=== PATIENT | female | born 1950 | race Caucasian/White ===

== ENCOUNTER 2017-09-09 17:07 | Inpatient (IN) | payer OTHER ==
[~2017-09-09] VITALS: Ht 157.5 cm; Wt 69.4 kg
--- NOTE | 2017-09-09 17:12 | NUR ---
PT BIBA TO BED 1
[2017-09-09 17:15] VITALS: BP 152/74
--- NOTE | 2017-09-09 17:15 | NUR ---
C/O ANTERIOR CHEST WALL PAIN NON RADIATING X3 DAYS PROVOKED BY HARD COUGH FATIGUE, HACKING CONGESTED COUGH X 2 WKS . DENIES N/V/D; SKIN IS PINK/WARM/DRY; AAOX4, HR EVEN AND REGULAR; PT DENIES ANY FEVER,SOB AT THIS TIME; PATIENT STATES PAIN OF 8/10 AT THIS TIME; VSS; PATIENT POSITIONED FOR COMFORT; HOB ELEVATED; BEDRAILS UP X2; BED DOWN. ER MD MADE AWARE OF PT STATUS.
[2017-09-09 17:40] LABS: BASOPHILS # (AUTO) 0.1 K/uL (0.00-0.22); BASOPHILS % (AUTO) 0.5 % (0.0-2.0); EOSINOPHILS # (AUTO) 0.4 K/uL (0-0.4); EOSINOPHILS % (AUTO) 3.2 % (0.0-4.0); HEMOGLOBIN 7.4 g/dL (12.0-16.0); LYMPHOCYTES % (AUTO) 15.3 % (20.5-51.1); MEAN CORPUSCULAR HEMOGLOBIN 29 pg (27-31); MEAN CORPUSCULAR HGB CONC 34 g/dL (33-37); MEAN CORPUSCULAR VOLUME 87 fL (80-94); MONOCYTES # (AUTO) 0.7 K/uL (0.8-1.0); MONOCYTES % (AUTO) 5.5 % (1.7-9.3); NEUTROPHILS # (AUTO) 9.9 K/uL (1.8-7.7); NEUTROPHILS % (AUTO) 75.5 % (42.2-75.2); PLATELET COUNT (AUTO) 271 K/uL (140-450); RED BLOOD CELL COUNT(AUTO) 2.53 MIL/uL (4.20-5.40); RED CELL DISTRIBUTION WIDTH 12.9 % (11.6-13.7); WHITE BLOOD COUNT (AUTO) 13.1 K/uL (4.8-10.8)
--- NOTE | 2017-09-09 17:50 | NUR ---
OFFER PT BEDPAN, PT DOES NOT WANT TO URINATE AT THIS TIME.
[2017-09-09 17:59] LABS: ALBUMIN 2.3 g/dL (3.4-5.0); ANION GAP 13.2 (8-16); POTASSIUM 4.2 mmol/L (3.5-5.1); PROTHROMBIN TIME 9.4 secs (10.8-13.4); TOTAL BILIRUBIN 0.2 mg/dL (0.0-1.0)
[2017-09-09 18:03] LABS: CREATININE 6.9 mg/dL (0.6-1.3)
--- NOTE | 2017-09-09 18:08 | NUR ---
NOTIFIED MD CRITICAL REPORT BUN 150 AND CREATININE 6.9
[2017-09-09] MEDS ORDERED: HYDROcodone/APAP 10/325 MG 1 TAB TAB PO STA (18:49)
[2017-09-09] MEDS ORDERED: IPRATROPIUM 0.02% 0.5 MG/2.5 ML NEBU INH ONE (18:50)
[2017-09-09] MEDS ORDERED: ALBUTEROL 0.083% 2.5 MG/3 ML NEBU INH ONE (18:50)
[2017-09-09] MEDS ORDERED: DEXAMETHASONE 10 MG/ML VIAL IVP ONE (18:50)
--- NOTE | 2017-09-09 19:08 | NUR ---
REPORT GIVEN TO RESISTANCE WELDER RN.
--- NOTE | 2017-09-09 19:20 | NUR ---
REPORT RECEIVED FROM TIARA VILLAR
[2017-09-09] MEDS ORDERED: NACL 0.45% 1,000 ML IV ONE (20:25)
--- NOTE | 2017-09-09 20:56 | NUR ---
PT REFUSED BAUER CATH FOR UA. ER MD DR DICKEY NOTIFICATION.
--- NOTE | 2017-09-09 21:05 | NUR ---
Patient will be admitted to care of DR AU. Admited to MED/SURG. Will go to [id number]. Belongings list completed. Report to JIAN YODER.
[2017-09-09 21:10] VITALS: BP 115/48
[2017-09-09 21:35] LABS: ANION GAP 17.4 (8-16); CARBON DIOXIDE 21.2 mmol/L (21-32); POTASSIUM 3.6 mmol/L (3.5-5.1)
[2017-09-09 21:42] LABS: CREATININE 6.9 mg/dL (0.6-1.3)
[2017-09-09] MEDS ORDERED: ACETAMINOPHEN 325 MG TAB PO SCH (22:00)
[2017-09-09] MEDS ORDERED: ONDANSETRON 4 MG/2 ML VIAL IM SCH (22:00)
--- NOTE | 2017-09-09 22:10 | NUR ---
ADMITTED A 67F FROM ER. CAME BY ALMA. MED SURG PT. CAME DUE TO PRODUCTIVE COUGH AND CHEST PAIN DUE TO COUGH AND FEVER. OF THIS TIME, PT IS AFEBRILE. WITH NO /CO OF ANY PAIN NOTED. AMBULATORY TO BATHROOM. WITH HL ON THE RT AC #20. SKIN INTACT ,JUST AN OLD SCAB ON THE LT KNEE. BOTH HAND FINGER SLIGHTLY SWOLLEN. PLAN OF CARE DISCUSSED AND VERBALIZED UNDERSTANDING. BED ON LOW POSITION, CALL LIGHT PLACED WITHIN EASY REACH.
[2017-09-09] MEDS ORDERED: ONDANSETRON 4 MG/2 ML VIAL IVP PRN (22:15)
[2017-09-09] MEDS ORDERED: ACETAMINOPHEN 325 MG TAB PO PRN (22:15)
[2017-09-09 22:23] LABS: APPEARANCE,URINE CLEAR (CLEAR); BILIRUBIN,URINE NEGATIVE (NEGATIVE); BLOOD, URINE 1+ (NEGATIVE); LEUKOCYTE ESTERASE ,URINE NEGATIVE (NEGATIVE); NITRITE, URINE NEGATIVE (NEGATIVE); PH,URINE 5.5 (5.0-9.0); UGLUCOSE 1+ (NEGATIVE)
[2017-09-09 22:24] LABS: COLOR,URINE STRAW (YELLOW)
[2017-09-09 22:41] LABS: RBC,URINE NONE SEEN /HPF (0-5); WBC,URINE 0-5 (RARE) /HPF (0-5)
--- NOTE | 2017-09-09 22:45 | NUR ---
TRIED CONTACTING FAMILY (DAUGHTER JAGJIT) FOR HOME MEDICATIONS BUT UNABLE . NO HOME PHONE NUMBER. THE CELL PHONE WITH PT. WILL ENDORSE TO AM NURSE.
--- NOTE | 2017-09-09 22:59 | NUR ---
PAGED Anushka SETH BEAMER HELPER FOR . CALLED BACK . GAVE INFORMATION ABOUT THE PT CONDITION. WITH ORDERS.
--- NOTE | 2017-09-09 23:25 | NUR ---
INSERTED BAUER CATHETER PER MD ORDER. TOLERATE PROCEDURE WELL.
[2017-09-10 00:10] VITALS: BP 150/56
--- NOTE | 2017-09-10 01:00 | NUR ---
PT ASLEEP. NO S/S OF DISTRESS NOR DISCOMFORT NOTED.
--- NOTE | 2017-09-10 02:30 | NUR ---
MADE ROUNDS. ASLEEP. NO S/S OF ANY DISCOMFORT NOR PAIN NOTED. WILL CONTINUE TO MONITOR.
[2017-09-10 03:50] VITALS: BP 123/55
--- NOTE | 2017-09-10 04:30 | NUR ---
SLEEPING. NO S/S OF ANY DISTRESS NOR PAIN NOTED.
--- NOTE | 2017-09-10 06:06 | NUR ---
BLOOD SUGAR WAS CHECKED THIS AM FOR PT IS DIABETIC. RESULT 406. PAGED DR. TEJEDA , STATEMENT DISTRIBUTION CLERK FOR DR. AU. CALLED BACK,. MADE HER AWARE OF THE BS. BS AC AND HS WITH SLIDING SCALE ORDER . TO GIVE HUMALOG 12 UNITS SUB Q ONCE TO COVER HER 406 BLOOD SUGAR THIS AM.
[2017-09-10] MEDS ORDERED: DEXTROSE 50% 50 ML SYR IVP PRN (06:20)
[2017-09-10] MEDS: BLOOD GLUCOSE MONITORING 1 DEV DEV FS SCH ×4 (06:38→21:33)
[2017-09-10 06:52] LABS: HEMATOCRIT 23.1 % (36-48); HEMOGLOBIN 7.8 g/dL (12.0-16.0); MEAN CORPUSCULAR HEMOGLOBIN 30 pg (27-31); MEAN CORPUSCULAR HGB CONC 34 g/dL (33-37); MEAN CORPUSCULAR VOLUME 88 fL (80-94); PLATELET COUNT (AUTO) 268 K/uL (140-450); RED BLOOD CELL COUNT(AUTO) 2.64 MIL/uL (4.20-5.40)
--- NOTE | 2017-09-10 06:58 | NUR ---
CALLED RT TO EVALUATE PT. THERE WAS ORDER FOR RT REQUEST FOR BREATHING TREATMENT. WILL SEE PT .
[2017-09-10] MEDS ORDERED: INSULIN LISPRO 100 UNITS/ML VIAL SUBQ SCH (07:00)
--- NOTE | 2017-09-10 07:05 | NUR ---
PAGED DR. AU WAS PAGED FOR BREATHING TREATMENTS. CALLED BACK WITH ORDER. RT MADE AWARE OF THE ORDER.
--- NOTE | 2017-09-10 07:30 | NUR ---
ENDORSED PT IN STABLE CONDITION TO AM NURSE.
--- NOTE | 2017-09-10 07:30 | NUR ---
PT REPORT RECEIVED FROM GRANITE COUNTERTOP INSTALLER RN. PT IS AAOX4. PT HAS PRODUCTIVE COUGH AND SPASM. BAUER IN PLACE DRAINING CLEAR YELLOW URINE. IV NOTED TO RIGHT AC 20G SALINE LOCK, AND RIGHT FA 22G INFUSING WELL AND ASYMPTOMATIC. SKIN INTACT, AN OLD SCAB NOTED ON THE L KNEE. PLAN OF CARE DISCUSSED AND PT VERBALIZED UNDERSTANDING. BED ON LOW POSITION, CALL LIGHT PLACED WITHIN REACH. WILL CONTINUE TO MONITOR.
[2017-09-10 07:53] LABS: BASOPHILS % (MANUAL) 0 % (0-2); EOSINOPHILS % (MANUAL) 0 % (0-4); LYMPHOCYTES % (MANUAL) 7 % (20-46); MONOCYTES % (MANUAL) 5 % (5-12)
[2017-09-10 08:00] VITALS: BP 145/62
--- NOTE | 2017-09-10 08:00 | NUR ---
VITALS TAKEN, BOARD UPDATED, INITIAL ASSESSMENT DONE.
[2017-09-10 08:19] LABS: ALBUMIN 2.4 g/dL (3.4-5.0); ANION GAP 20.2 (8-16); MAGNESIUM 2.2 mg/dL (1.8-2.4); PHOSPHORUS 6.8 mg/dL (2.5-4.9); POTASSIUM 5.2 mmol/L (3.5-5.1); TOTAL BILIRUBIN 0.2 mg/dL (0.0-1.0)
[2017-09-10 08:22] LABS: CREATININE 7.2 mg/dL (0.6-1.3)
--- NOTE | 2017-09-10 08:25 | NUR ---
RT PLACED PT ON 2L O2 VIA NC. NO SOB NOTED. INTERMITTENT COUGH WITH CREAMY SPUTUM.
--- NOTE | 2017-09-10 08:31 | NUR ---
PT REFUSES HHN WANTS TO EAT
--- NOTE | 2017-09-10 08:35 | NUR ---
DR AU HAS SEEN THE PT. PT HAVING SPASM IN TH LEGS, HELPED PT STRETCH LEGS, DR AU IS AWARE.
[2017-09-10] MEDS: ALBUTEROL SULFATE/IPRATROPIU 3 ML SOL IH PRN ×3 (08:43→18:15)
[2017-09-10] MEDS ORDERED: methylPREDNISolone SS 40 MG/ML VIAL IVP SCH (09:00)
[2017-09-10] MEDS ORDERED: methylPREDNISolone SS 40 MG in WATER STERILE 1 ML IV SCH (09:00)
[2017-09-10] MEDS: DOCUSATE 100 MG/10 ML UDC GT SCH (09:15)
[2017-09-10] MEDS: FERROUS SULFATE 325 MG TABEC PO SCH ×3 (09:18→17:52)
--- NOTE | 2017-09-10 10:08 | NUR ---
PT IS WATCHING TV. SCD APPLIED. NO S/S OF SOB.
[2017-09-10] MEDS ORDERED: CALC667C3 PO (10:50)
[2017-09-10] MEDS ORDERED: HYDR-3293 (11:35)
[2017-09-10] MEDS ORDERED: GABA-638 PO (11:35)
[2017-09-10] MEDS ORDERED: PANT40EC28 PO (11:35)
[2017-09-10] MEDS ORDERED: LISI-420 PO (11:35)
[2017-09-10] MEDS ORDERED: FERR-193 PO (11:35)
[2017-09-10] MEDS ORDERED: METO50TE PO (11:35)
[2017-09-10] MEDS ORDERED: AMLO5TAB4 PO (11:35)
[2017-09-10] MEDS ORDERED: ALLO100T21 PO (11:35)
[2017-09-10] MEDS ORDERED: INSU100S22 (11:35)
[2017-09-10] MEDS ORDERED: REN800 PO (11:35)
[2017-09-10] MEDS ORDERED: INSU-1165 (11:35)
[2017-09-10] MEDS ORDERED: CALC0.5C PO (11:35)
[2017-09-10] MEDS: INSULIN LISPRO SLIDING SCALE 100 UNITS/ML VIAL SUBQ PRN ×3 (11:57→21:51)
--- NOTE | 2017-09-10 12:10 | NUR ---
PT IS EATING LUNCH INDEPENDENTLY, NO S/S OF ACUTE DISTRESS. INTERMITTENT COUGH.
[2017-09-10] MEDS: guaiFENesin/CODEINE 100/10MG 5 ML UDC PO PRN (13:06)
[2017-09-10 16:00] VITALS: BP 145/59
--- NOTE | 2017-09-10 16:10 | NUR ---
PT HAS SIGN CONSENT FOR HEMODIALYSIS CATH PLACEMENT, HEMODIALYSIS AND BLOOD TRANSFUSION. DR HERNÁNDEZ HAS INSERTED NILA CATH FOR HEMODIALYSIS ON THE RIGHT IJ. CENTRAL LINE DRESSING APPLIED.
[2017-09-10] MEDS ORDERED: LORazepam 2 MG/ML VIAL ONE (16:22)
--- NOTE | 2017-09-10 16:30 | NUR ---
X RAY HAS BEEN TAKEN TO CONFIRM CATH PLACEMENT
--- NOTE | 2017-09-10 17:00 | NUR ---
1L URINE REMOVED FROM BAUER. URINE IS YELLOW, SLIGHTLY CLOUDY.
--- NOTE | 2017-09-10 18:15 | NUR ---
PT UNABLE TO SIT STILL , AGITATED, RESP LABORED AUDIBLY WHEEZING AND WET BREATH SOUNDS, FREQ COUGHS WITH COPIOUS AMOUNT OF CLEAR SPUTUM, RT PAGED FOR PRN NEB TREATMENT, PT AWAITING DIALYSIS IN 1HR.
--- NOTE | 2017-09-10 18:30 | NUR ---
PT IS GETTING BREATHING TX. PT HAD BMX1. PT WAS CLEANED AND BED LINENS CHANGED.
--- NOTE | 2017-09-10 18:45 | NUR ---
PT CONTINUES TO BE RESTLESS, ATTEMPTS TO GET OUT OF BED, DOES NOT FOLLOW COMMAND, PT APPEARS TOO DISORIENTED AND CONFUSED FOR AMBULATION TO BATHROOM, PT PLACED ON BED GODDARD, C/O KNEE PAIN, TYLENOL GIVEN, DR HOUSE GRAPHIC ART DESIGNER FOR DR ANGELY BELLO.
--- NOTE | 2017-09-10 19:15 | NUR ---
DR HOUSE CALLED BACK, PT CONDITION REPORTED, TELEPHONE ORDER RECEIVED FOR ONE TIME ATIVAN PRIOR TO DIALYSIS. WILL REPORT TO PRIMARY NURSE.
[2017-09-10] MEDS ORDERED: LORazepam 2 MG/ML VIAL IVP ONE ×3 (19:25→21:50)
--- NOTE | 2017-09-10 19:30 | NUR ---
ENDORSED PT TO CLINICAL RESEARCH PHYSICIAN RN. PT IN STABLE CONDITION.
--- NOTE | 2017-09-10 19:31 | NUR ---
RECEIVED PT FROM DAY SHIFT NURSE AXEL-RN. AOX4, YUNIOR PT. ON 2L/NC - 99% SAO2, NO S/S OF RESPIRATORY DISTRESS OR DISCOMFORT NOTED. RIGHT FA #22G HEPLOCK. RIGHT AC #20G HEPLOCK. WITH NEW RIGHT JUGULAR NILA CATHETER FOR DIALYSIS SCHEDULED TONIGHT. BAUER CATHETER TO GRAVITY, CLEAR YELLOW URINE OUTPUT. BILATERAL LOWER EXTREMITY SCD MACHINE ON. BED IN LOWEST POSITION. CALL LIGHT WITHIN REACH. WILL CONTINUE TO MONITOR.
--- NOTE | 2017-09-10 19:50 | NUR ---
HD NURSE CAME HD STARTED.
--- NOTE | 2017-09-10 21:05 | NUR ---
FIRST UNIT OF PRBC TRANSFUSED BY HD NURSE WITH NO REACTION NOTED.
[2017-09-10] MEDS: INSULIN LANTUS 100 UNITS/ML 10 ML VIAL SUBQ SCH (21:37)
--- NOTE | 2017-09-10 21:53 | NUR ---
PT AGITATED. PT STILL ON HEMODIALYSIS. TRIED TO PULL OUT HD CATHETER. ATIVAN 1MG IV PUSH WAS GIVEN PER ORDER.
--- NOTE | 2017-09-10 22:20 | NUR ---
SECOND UNIT OF PRBC COMPLETED BY HD NURSE WITH NO REACTION NOTED.
--- NOTE | 2017-09-10 22:54 | NUR ---
HD DONE . NO OUTPUT PER HD NURSE, JUST CLEANED PER MD ORDER. LATEST BP AFTER THE PROCEDURE 170/58. PT IS ASLEEP AT THIS TIME. WILL CONTINUE TO MONITOR.
[2017-09-10 23:50] VITALS: BP 176/90
--- NOTE | 2017-09-10 23:50 | NUR ---
PT CLEANED UP IN BED. REPOSITIONED FOR COMFORT THEN VITAL SIGNS TAKEN. BP 176/90, HR-102. WILL CALL MD TO MAKE AWARE.
--- NOTE | 2017-09-10 23:58 | NUR ---
GOT HOLD OF DR. HOUSE, HIGH SCHOOL COMPUTER SCIENCE TEACHER FOR DR. AU. MADE AWARE OF THE BP 176/90,HR-1-2. WITH ORDERS MADE.
[2017-09-11] MEDS ORDERED: cloNIDine 0.1 MG TAB PO PRN (00:10)
[2017-09-11] MEDS ORDERED: hydrALAZINE 20 MG/ML VIAL IVP PRN (00:10)
[2017-09-11] MEDS: guaiFENesin/CODEINE 100/10MG 5 ML UDC PO PRN (00:41)
--- NOTE | 2017-09-11 00:42 | NUR ---
RECHECKED BLOOD PRESSURE 186/82, HR 99. CLONIDINE O.2MG PO GIVEN ORDERED.
[2017-09-11 02:12] VITALS: BP 142/64
--- NOTE | 2017-09-11 02:12 | NUR ---
LATEST BLOOD PRESSURE 142/64 AFTER ADMINISTERING CLONIDINE.
--- NOTE | 2017-09-11 05:00 | NUR ---
PT TRYING TO GET OUT OF BED. PT GETTING CONFUSED. PT NEEDING REDIRECTING. BE ALARM ON FOR SAFETY. WILL CONTINUE TO MONITOR.
[2017-09-11] MEDS: ALBUTEROL SULFATE/IPRATROPIU 3 ML SOL IH PRN ×3 (06:06→18:57)
[2017-09-11] MEDS: BLOOD GLUCOSE MONITORING 1 DEV DEV FS SCH ×4 (06:11→21:00)
[2017-09-11] MEDS: INSULIN LISPRO SLIDING SCALE 100 UNITS/ML VIAL SUBQ PRN ×4 (06:12→21:12)
--- NOTE | 2017-09-11 06:12 | NUR ---
BLOOD SUGAR WAS CHECKED THIS AM . RESULT 197. INSULIN COVERAGE GIVEN SUBQ.
[2017-09-11 06:49] LABS: HEMATOCRIT 28.3 % (36-48); HEMOGLOBIN 9.6 g/dL (12.0-16.0); MEAN CORPUSCULAR HEMOGLOBIN 30 pg (27-31); MEAN CORPUSCULAR HGB CONC 34 g/dL (33-37); MEAN CORPUSCULAR VOLUME 87 fL (80-94); PLATELET COUNT (AUTO) 207 K/uL (140-450); RED BLOOD CELL COUNT(AUTO) 3.25 MIL/uL (4.20-5.40); RED CELL DISTRIBUTION WIDTH 12.9 % (11.6-13.7); WHITE BLOOD COUNT (AUTO) 21.7 K/uL (4.8-10.8)
--- NOTE | 2017-09-11 06:50 | NUR ---
HD NURSE HERE STARTED DIALYSIS .
[2017-09-11 07:12] LABS: ANION GAP 12.7 (8-16); CARBON DIOXIDE 27.7 mmol/L (21-32); POTASSIUM 3.4 mmol/L (3.5-5.1)
[2017-09-11 07:16] LABS: CREATININE 4.3 mg/dL (0.6-1.3)
--- NOTE | 2017-09-11 07:20 | NUR ---
ENDORSED STABLE PT TO AM NURSE IRA VILLAR.
--- NOTE | 2017-09-11 07:21 | NUR ---
RECEIVED REPORT FROM STREET LIGHT MECHANIC RN. PATIENT IS AAOX2, ON NASAL CANNULA, NO SIGNS AND SYMPTOMS OF ACUTE DISTRESS NOTED AT THIS TIME. PATIENT HAS IV TO RIGHT FOREARM 22G, SALINE LOCK. SITE IS CLEAN, DRY, PATENT AND INTACT. HAS RIGHT IJ NILA CATH FOR DIALYSIS. DIALYSIS NURSE IS CURRENTLY HERE SETTING UP. PATIENT HAS BAUER CATHETER IN PLACE. ALSO HAS BEDSIDE COMMODE AT THE BEDSIDE. DISCUSSED PLAN OF CARE WITH PATIENT AND REINFORCEMENT WAS NEEDED. BED IS IN LOWEST POSITION, SIDE RAILS UP X3, CALL LIGHT WITHIN REACH, FALL RISK PROTOCOL IN PLACE. WILL CONTINUE TO MONITOR.
[2017-09-11 07:53] LABS: ANION GAP 12.7 (8-16); CARBON DIOXIDE 27.7 mmol/L (21-32); POTASSIUM 3.4 mmol/L (3.5-5.1)
[2017-09-11 07:54] LABS: CREATININE 4.3 mg/dL (0.6-1.3); LYMPHOCYTES % (MANUAL) 3 % (20-46); MONOCYTES % (MANUAL) 2 % (5-12)
[2017-09-11 07:55] LABS: ALBUMIN 2.3 g/dL (3.4-5.0); TOTAL BILIRUBIN 0.3 mg/dL (0.0-1.0)
[2017-09-11 08:00] VITALS: BP 129/52
[2017-09-11] MEDS: DOCUSATE 100 MG/10 ML UDC GT SCH (08:52)
[2017-09-11] MEDS: FERROUS SULFATE 325 MG TABEC PO SCH ×3 (08:52→17:04)
--- NOTE | 2017-09-11 10:09 | NUR ---
PATIENT HAS BEEN SCREENED AND CATEGORIZED MODERATE NUTRITION RISK. PATIENT WILL BE SEEN WITHIN 3-5 DAYS OF ADMISSION. 09/11/17-09/13/[address]
--- NOTE | 2017-09-11 11:07 | NUR ---
RECEIVED ORDER TO SET UP PATIENT FOR OP HD AT [facility]. I CALLED THE DIALYSIS CENTER AND SPOKE WITH DAVE. FAXED INFORMATION TO HER AT [phone] PHONE [phone]. NO HEP PANEL YET. PATIENT STILL HAVE NILA CATH.
--- NOTE | 2017-09-11 12:03 | NUR ---
FAXED INITIAL REVIEW TO [facility] [phone] PHONE TRACIE [phone]
--- NOTE | 2017-09-11 13:59 | NUR ---
REMOVED PATIENTS BAUER CATHETER PER DR MCWILLIAMS. PATIENT TOLERATED WELL. REMINDED HER THAT THE BEDSIDE COMMODE IS NEXT TO HER IF SHE NEEDS TO URINATE. CALL LIGHT WITHIN REACH. WILL CONTINUE TO MONITOR.
[2017-09-11 16:00] VITALS: BP 150/62
--- NOTE | 2017-09-11 19:20 | NUR ---
ENDORSED PATIENT TO INNER LAYER SCRUBBER TENDER RN FOR CONTINUITY OF CARE. PATIENT IN STABLE CONDITION.
--- NOTE | 2017-09-11 19:30 | NUR ---
ASSUMED CARE OF PATIENT, AWAKE, ALERT AND ORIENTED. NO COMPLAINS. NO DISTRESS. CALL LIGHT WITHIN REACH.
--- NOTE | 2017-09-11 20:00 | NUR ---
HS SNACK GIVEN. CALL LIGHT WITHIN REACH. CARE BOARD UPDATED. PLAN OF CARE DISCUSSED, VERBALIZED UNDERSTANDING WELL.
--- NOTE | 2017-09-11 21:00 | NUR ---
DR. HERNÁNDEZ NOTED WBC-21.4, WANTS TO CALL PRIMARY MD TO INQUIRE FOR POSSIBILE ANTIBIOTIC, DR. LINDSAY MADE AWARE AND BLOOD CULTURE X2 SENT.
[2017-09-11] MEDS: INSULIN LANTUS 100 UNITS/ML 10 ML VIAL SUBQ SCH (21:12)
--- NOTE | 2017-09-11 23:10 | NUR ---
STOOL SPECIMEN FOR OB. PERICARE DONE. COMPLETE BED CHANGE DONE.
[2017-09-12 00:05] VITALS: BP 133/66
--- NOTE | 2017-09-12 04:40 | NUR ---
ASLEEP, EASILY AROUSABLE. NO COMPLAINS. CALL LIGHT WITHIN REACH.
[2017-09-12] MEDS: BLOOD GLUCOSE MONITORING 1 DEV DEV FS SCH ×4 (05:58→20:51)
[2017-09-12 06:23] LABS: HEPATITIS A ANTIBODY IGM Negative (Negative); HEPATITIS B CORE AB TOTAL Negative (Negative); HEPATITIS B SURFACE ANTIBODY Non Reactive (.); HEPATITIS B SURFACE ANTIGEN Negative (Negative)
[2017-09-12 06:42] LABS: BASOPHILS # (AUTO) 0.1 K/uL (0.00-0.22); BASOPHILS % (AUTO) 0.4 % (0.0-2.0); EOSINOPHILS # (AUTO) 0.1 K/uL (0-0.4); EOSINOPHILS % (AUTO) 0.4 % (0.0-4.0); HEMATOCRIT 30.5 % (36-48); HEMOGLOBIN 10.4 g/dL (12.0-16.0); LYMPHOCYTES # (AUTO) 2.1 K/uL (2.5-16.5); LYMPHOCYTES % (AUTO) 12.8 % (20.5-51.1); MEAN CORPUSCULAR HEMOGLOBIN 30 pg (27-31); MEAN CORPUSCULAR HGB CONC 34 g/dL (33-37); MEAN CORPUSCULAR VOLUME 88 fL (80-94); MONOCYTES # (AUTO) 1.3 K/uL (0.8-1.0); NEUTROPHILS # (AUTO) 12.9 K/uL (1.8-7.7); NEUTROPHILS % (AUTO) 78.4 % (42.2-75.2); PLATELET COUNT (AUTO) 223 K/uL (140-450); RED BLOOD CELL COUNT(AUTO) 3.45 MIL/uL (4.20-5.40); RED CELL DISTRIBUTION WIDTH 13.1 % (11.6-13.7); WHITE BLOOD COUNT (AUTO) 16.5 K/uL (4.8-10.8)
[2017-09-12] MEDS: ALBUTEROL SULFATE/IPRATROPIU 3 ML SOL IH PRN ×2 (06:51→13:07)
--- NOTE | 2017-09-12 07:09 | NUR ---
ENDORSED CARE AT BEDSIDE WITH ASHOK RN, PATIENT IN STABLE CONDITION
[2017-09-12 07:13] LABS: ANION GAP 13.2 (8-16); CARBON DIOXIDE 29.2 mmol/L (21-32); CREATININE 3.8 mg/dL (0.6-1.3); POTASSIUM 3.4 mmol/L (3.5-5.1)
[2017-09-12 07:17] LABS: ALBUMIN 2.2 g/dL (3.4-5.0); ANION GAP 12.2 (8-16); CARBON DIOXIDE 29.2 mmol/L (21-32); CREATININE 3.8 mg/dL (0.6-1.3); POTASSIUM 3.4 mmol/L (3.5-5.1); TOTAL BILIRUBIN 0.3 mg/dL (0.0-1.0)
--- NOTE | 2017-09-12 07:30 | NUR ---
PATIENT SLEEPING, VITAL SIGNS ARE STABLE, ON ROOM AIR.
--- NOTE | 2017-09-12 07:55 | NUR ---
RECEIVED A CALL FROM DAVE ON 09/11/17 FROM [facility]. SHE SAID THE CHAIR TIME FOR THIS PATIENT WILL BE MONDAY, MONDAY, MONDAY AT 8:30A.M. AT [facility] [address] [facility] [address] PHONE [phone]
[2017-09-12 08:16] VITALS: BP 133/55
[2017-09-12] MEDS: FERROUS SULFATE 325 MG TABEC PO SCH ×3 (08:39→17:13)
[2017-09-12] MEDS: DOCUSATE 100 MG/10 ML UDC GT SCH (08:43)
--- NOTE | 2017-09-12 10:00 | NUR ---
Patient in distress d/t her hair being caught on tape from her IJ quintion cath. Patient does not want us to pull the hair off the tape, she refused and told us to cut it. CATALYST MANUFACTURING OPERATOR helped remove some hair but she urged us to cut some of the hair off. Once we cut it she was relieved. Will continue to monitor the patient.
--- NOTE | 2017-09-12 12:00 | NUR ---
I call Patient's Erin Huynh at , to discuss discharge for patient today with MD. Recommendation to go to a [facility] Facility. I inform Mrs. Huynh that case uri has attempted to have patient go to [facility] however; insurance did not approved due to patient needing a higher level of care. Mrs. Huynh stated that she did not want Patient to go to [facility] and was thinking to take him home. I explained to Patient's Mrs. Huynh that in order for case liner to search for Placement it needed to be discussed with her and been on agreement for the process of finding a SNF. She verbalized understanding, and stated that she will like to see those places first. I explained to Mrs. Huynh that the process usually is handle by case fitter and it consist on finding a bed and facility that contracts with patient's insurance and when found it is sometimes very difficult to coordinate the visit first and it is possible to loose the bed if a delay was to happen. Mrs. Huynh agreed and verbalized understanding, she also stated that it was fine for case uri to search for a SNF. I thank her for information and I ended the call.
[2017-09-12] MEDS: INSULIN LISPRO SLIDING SCALE 100 UNITS/ML VIAL SUBQ PRN ×3 (12:08→20:57)
--- NOTE | 2017-09-12 12:08 | NUR ---
Patient resting, easily arousable. Will continue to monitor
--- NOTE | 2017-09-12 14:50 | NUR ---
Patient stable, sitting on chair watching TV. Will continue to monitor.
[2017-09-12 16:00] VITALS: BP 168/60
--- NOTE | 2017-09-12 16:06 | NUR ---
FAXED CONCURRENT REVIEW TO [facility] [phone] PHONE TRACIE [phone]
--- NOTE | 2017-09-12 17:00 | NUR ---
I met with Patient and Erin Huynh at bedside to discuss patient's discharge to SNF( [facility]) [facility]. Mrs. Huynh was stated feeling concern that Patient will be discharge to SNF when she has not visited the place and location, stated " I just don't Know if it a good place for my " These program writer explained to Mrs. Huynh that facility has served community and many patient's with similar needs that her has and explained that hospice case manager Dayanna has made every effort to find an facility closer to her home, that can provide services Patient is in need for and coordinate all transportation to placement, I Also explained that Patient needs to discharge today to a different level of care and that if he is not to discharge and she declined services; she will possibly be financially responsible for the hospitalization due to her declining of services. Mrs Huynh expressed understanding and stated that she just wants to see facility before Patient is send there for treatment I explained to her that she can and she can also Speak to [facility] facility Staff. Mrs. Huynh agreed and Tran from [facility] call Mrs. Huynh and arrange for her to go see facility at about 5:20. Mrs. Huynh Ended call and stated to these program writer that she was in her way and will comeback to [facility] before transport is here ready to move Patient. She thank me for my assistance as we walk out the room stating that she will be back.
--- NOTE | 2017-09-12 17:19 | NUR ---
Patient sitting on bed, watching TV. No complaints of pain. Stabilized IJ kristofer catheter with tape, it becomes loose when she sleeps on it. Will continue to monitor
--- NOTE | 2017-09-12 18:49 | NUR ---
USED PUBLICITY CONSULTANT PHONE TO OBTAIN CONSENT FOR PERMACATH PLACEMENT. PATIENT AGREED TO PROCEDURE AND SIGNED CONSENT.
--- NOTE | 2017-09-12 19:07 | NUR ---
Gave report to restaurant shift leader nurse for continuity of care. Patient is in stable condition.
--- NOTE | 2017-09-12 19:08 | NUR ---
RECD. RESTING IN BED, AWAKE, A/OX3. RESPIRATION EVEN AND UNLABORED. 02 SATURATING AT 96% ON ROOM AIR. NILA CATH AT THE RIGHT IJ WITH DRESSING, FOR CHANGING IN AM, IV SALINE LOCK AT THE RIGHT FOREARM G22, PATENT AND INTACT. USES BSC. SAFETY MEASURES ENFORCED. ON BILATERAL LEG SEQUENTIALS. PLAN OF CARE FOR THE SHIFT DISCUSSED. VERBALIZED UNDERSTANDING. DENIES PAIN 0/10.
[2017-09-12] MEDS: INSULIN LANTUS 100 UNITS/ML 10 ML VIAL SUBQ SCH (20:54)
[2017-09-12] MEDS: guaiFENesin/CODEINE 100/10MG 5 ML UDC PO PRN (21:13)
--- NOTE | 2017-09-12 21:13 | NUR ---
ATE 100% SNACK FOR THE NIGHT, WITH PRODUCTIVE COUGHING, MEDICATED WITH ROBITUSSIN ORDERED.
--- NOTE | 2017-09-12 22:00 | NUR ---
Patient's Plan of Care was discussed and reviewed with SILVERWARE SUPERVISOR: ISAAK PARIKH
--- NOTE | 2017-09-12 22:13 | NUR ---
NO COUGHING NOTED, SLEEPING COMFORTABLY IN BED.
[2017-09-13] VITALS: BP 156/64
--- NOTE | 2017-09-13 | NUR ---
SLEEPING COMFORTABLY IN BED.
[2017-09-13] MEDS: guaiFENesin/CODEINE 100/10MG 5 ML UDC PO PRN (03:39)
--- NOTE | 2017-09-13 03:39 | NUR ---
WITH COUGHING, MEDICATED WITH ROBITUSSIN ORDERED.
--- NOTE | 2017-09-13 04:39 | NUR ---
NO COUGHING NOTED, SLEEPING COMFORTABLY IN BED.
[2017-09-13] MEDS: BLOOD GLUCOSE MONITORING 1 DEV DEV FS SCH ×4 (06:12→21:14)
--- NOTE | 2017-09-13 06:40 | NUR ---
SLEEPING COMFORTABLY IN BED, NPO FOR PLACEMENT OF DIALYSIS PERMA CATH TODAY. CONDITION REMAIN STABLE. WILL ENDORSE TO AM NURSE FOR CONTINUITY OF CARE.
--- NOTE | 2017-09-13 07:10 | NUR ---
RECEIVED REPORT FROM INSTALLER HELPER NURSE. PT IS RESTING IN BED, AAOX4, AMBULATORY, PT HAS IV ON HER RIGHT FA, PATENT, INTACT, FLUSHING WELL, SL, PT HAS RIGHT IJ NILA CATH, NO S/S OF RESPIRATORY DISTRESS OR DISCOMFORT NOTED, LEFT KNEE SCAB, DISCUSSED PLAN OF CARE WITH PT, PT VERBALIZED UNDERSTANDING, SAFETY/FALL PRECAUTIONS ARE IN PLACE, CALL LIGHT IS WITHIN REACH, WILL CONTINUE TO MONITOR.
[2017-09-13 07:22] LABS: ANION GAP 13.2 (8-16); CARBON DIOXIDE 27.3 mmol/L (21-32); POTASSIUM 3.5 mmol/L (3.5-5.1)
[2017-09-13 07:35] LABS: CREATININE 4.5 mg/dL (0.6-1.3)
[2017-09-13 08:00] VITALS: BP 127/65
[2017-09-13] MEDS: FERROUS SULFATE 325 MG TABEC PO SCH ×3 (08:00→16:43)
[2017-09-13 08:06] LABS: HEMATOCRIT 29.9 % (36-48); HEMOGLOBIN 9.5 g/dL (12.0-16.0); MEAN CORPUSCULAR HEMOGLOBIN 28 pg (27-31); MEAN CORPUSCULAR HGB CONC 32 g/dL (33-37); MEAN CORPUSCULAR VOLUME 88 fL (80-94); PLATELET COUNT (AUTO) 206 K/uL (140-450); RED BLOOD CELL COUNT(AUTO) 3.41 MIL/uL (4.20-5.40); RED CELL DISTRIBUTION WIDTH 13.1 % (11.6-13.7); WHITE BLOOD COUNT (AUTO) 15.2 K/uL (4.8-10.8)
[2017-09-13 08:52] LABS: EOSINOPHILS % (MANUAL) 1 % (0-4); LYMPHOCYTES % (MANUAL) 12 % (20-46); MONOCYTES % (MANUAL) 5 % (5-12)
[2017-09-13] MEDS: DOCUSATE 100 MG/10 ML UDC GT SCH (09:00)
--- NOTE | 2017-09-13 09:55 | NUR ---
SPOKE TO DR. HERNÁNDEZ, I ASKED HIM IF THE PATIENT WOULD BE HAVING THE PERMA CATH DONE TODAY. PER DR. HERNÁNDEZ, PROCEDURE WILL MOST LIKELY BE DONE TOMORROW NIGHT, 09/14/17, SINCE HER WBC IS STILL ELEVATED. PATIENT SHOULD BE ON ANTIBIOTICS. OKAY TO GO AHEAD AND DO DIALYSIS TODAY.
[2017-09-13] MEDS: EPOETIN ALFA 10,000 UNITS/ML VIAL SUBQ SCH (10:50)
--- NOTE | 2017-09-13 10:50 | NUR ---
DUE MEDICATION GIVEN, PT TOLERATED WELL. WILL CONTINUE TO MONITOR.
--- NOTE | 2017-09-13 11:05 | NUR ---
SPOKE TO DR. AU, I LET HIM KNOW I HAD SPOKEN TO DR. HERNÁNDEZ AND HE WOULD LIKE FOR THE PATIENT TO BE RECEIVING ANTIBIOTIC TREATMENT FOR HER ELEVATED WBC BEFORE HE DOES THE TUNNEL CATH. PER DR. AU HE WILL PUT IN AN ANTIBIOTIC ORDER.
[2017-09-13] MEDS: INSULIN LISPRO SLIDING SCALE 100 UNITS/ML VIAL SUBQ PRN ×2 (12:24→21:19)
[2017-09-13 12:28] LABS: HEPATITIS B SURFACE ANTIGEN Negative (Negative)
--- NOTE | 2017-09-13 13:00 | NUR ---
PT WAS SITTING ON CHAIR AT BEDSIDE, PATIENT'S BED LINENS WERE CHANGED, ALL NEEDS MET AT THIS TIME, CALL LIGHT WITHIN REACH.
--- NOTE | 2017-09-13 13:13 | NUR ---
CM NOTE CONCURRENT REVIEW FAXED TO [facility] / FAX# [phone], ATTN: TRACIE #[phone]
--- NOTE | 2017-09-13 14:47 | NUR ---
09/13/2017 RD INITIAL ASSESSMENT COMPLETED PLEASE REFER TO NUTRITION ASSESSMENT UNDER CARE ACTIVITY FOR ESTIMATED NUTRITIONAL NEEDS. RD TO DISCUSS RENAL DIETARY RESTRICTIONS WITH PT (COMPLETED) NURSING AND DIETARY STAFF TO CONTINUE TO ENCOURAGE INCREASED INTAKE RD TO FOLLOW-UP IN 2-3 DAYS PATIENT IS HIGH RISK. KVNG HALE, RD
--- NOTE | 2017-09-13 15:15 | NUR ---
PT RESTING IN BED TALKING ON THE PHONE, CALL LIGHT WITHIN REACH.
[2017-09-13 16:00] VITALS: BP 177/73
--- NOTE | 2017-09-13 19:05 | NUR ---
ENDORSED PT TO VIDEO POKER FLOORMAN NURSE FOR CONTINUITY OF CARE. PT STABLE AT THIS TIME, DIALYSIS NURSE IS AT BEDSIDE.
--- NOTE | 2017-09-13 19:06 | NUR ---
RECD. RESTING IN BED, AWAKE, A/OX3. RESPIRATION EVEN AND UNLABORED. ON 02 AT 2 LITERS VIA N/C, 02 SAT -97%. DIALYSIS ON GOING VIA RIGHT JUGULAR NILA CATH. COMPLAINT OF PAIN IN THE UPPER BACK 09/16, BUT REFUSED PAIN MEDICATION. ASSISTED TO LAY ON HER SIDES AND PLACED TWO PILLOWS ON BACK FOR COMFORT. PLAN OF CARE FOR THE SHIFT DISCUSSED. JUST NODS HEAD. SEEMS IMPATIENT WITH DIALYSIS, WANTS IT TO END SOON. VERBAL ENCOURAGEMENT GIVEN. ON BILATERAL LEG SEQUENTIALS. DIALYSIS NURSE AT THE BEDSIDE.
--- NOTE | 2017-09-13 21:05 | NUR ---
DIALYSIS FINISHED, ABLE TO TAKE OUT 1.9 LITERS OF FLUID PER DIALYSIS NURSE.
[2017-09-13] MEDS: INSULIN LANTUS 100 UNITS/ML 10 ML VIAL SUBQ SCH (21:18)
[2017-09-13] MEDS: PIPER/TAZO 2.25GM/D5W PREMIX 50 ML IV SCH ×2 (21:30→21:34)
--- NOTE | 2017-09-13 23:30 | NUR ---
LEFT THIGHS AND LEFT LOWER EXTREMITY WITH ITCHINESS, APPLIED LOTION. REFUSED MED FOR ITCHINESS WHEN OFFERED.
[2017-09-14] VITALS: BP 128/67
--- NOTE | 2017-09-14 | NUR ---
SLEEPINGT COMFORTABLY IN BED.
--- NOTE | 2017-09-14 01:00 | NUR ---
SHOUTED, WHEN ASKED WHY STATED SHE HAS BACK PAIN BUT REFUSED PAIN MEDICATION WHEN OFFERED. MADE COMFORTABLE WITH PILLOWS.
--- NOTE | 2017-09-14 02:30 | NUR ---
WITH PRODUCTIVE COUGHING BUT REFUSED COUGH MEDICINE WHEN OFFERED.
--- NOTE | 2017-09-14 04:00 | NUR ---
WARM BLANKETS GIVEN, MADE COMFORTABLE IN BED.
[2017-09-14] MEDS: BLOOD GLUCOSE MONITORING 1 DEV DEV FS SCH ×4 (06:04→21:00)
[2017-09-14 06:58] LABS: BASOPHILS # (AUTO) 0.1 K/uL (0.00-0.22); BASOPHILS % (AUTO) 0.5 % (0.0-2.0); EOSINOPHILS # (AUTO) 0.3 K/uL (0-0.4); EOSINOPHILS % (AUTO) 1.7 % (0.0-4.0); HEMOGLOBIN 10.4 g/dL (12.0-16.0); LYMPHOCYTES # (AUTO) 1.5 K/uL (2.5-16.5); LYMPHOCYTES % (AUTO) 10.1 % (20.5-51.1); MEAN CORPUSCULAR HEMOGLOBIN 30 pg (27-31); MEAN CORPUSCULAR HGB CONC 35 g/dL (33-37); MEAN CORPUSCULAR VOLUME 87 fL (80-94); MONOCYTES # (AUTO) 0.8 K/uL (0.8-1.0); MONOCYTES % (AUTO) 5.3 % (1.7-9.3); NEUTROPHILS # (AUTO) 12.5 K/uL (1.8-7.7); NEUTROPHILS % (AUTO) 82.4 % (42.2-75.2); PLATELET COUNT (AUTO) 221 K/uL (140-450); RED BLOOD CELL COUNT(AUTO) 3.46 MIL/uL (4.20-5.40); RED CELL DISTRIBUTION WIDTH 12.8 % (11.6-13.7); WHITE BLOOD COUNT (AUTO) 15.2 K/uL (4.8-10.8)
--- NOTE | 2017-09-14 07:03 | NUR ---
CONDITION REMAIN STABLE. NPO FOR PERMA CATH PLACEMENT TODAY. WILL ENDORSE TO AM NURSE FOR CONTINUITY OF CARE.
--- NOTE | 2017-09-14 07:15 | NUR ---
RECEIVED REPORT FROM ARCHITECT MARINE AT BEDSIDE FOR CONTINUITY OF CARE.
[2017-09-14 07:29] LABS: ALBUMIN 2.1 g/dL (3.4-5.0); ANION GAP 12.4 (8-16); CARBON DIOXIDE 28.2 mmol/L (21-32); CREATININE 3.8 mg/dL (0.6-1.3); POTASSIUM 3.6 mmol/L (3.5-5.1); TOTAL BILIRUBIN 0.3 mg/dL (0.0-1.0)
--- NOTE | 2017-09-14 07:50 | NUR ---
PATIENT ALERT ABLE TO VERBALIZE NEEDS. NO ACUTE DISTRESS NOTED. RESP EVEN AND UNLABORED. NO COUGH OR CONGESTION NOTED. LUNG SOUNDS CLEAR IN ALL MICHAEL. BOWEL SOUNDS ACTIVE X 4 QUADS. PATIENT WITH RIJ NILA CATH WITH 2 LUMENS. . RFA 22G SL. PATENT AND INTACT. PATIENT NPO THIS AM FOR PERMACATH PLACEMENT. PATIENT BELARUSIAN SPEAKING . CONT ON O2 @2L/MIN VIA NC.ASSISTED PATIENT TO RESTROOM. CALL LIGHT WITHIN REACH. WILL CONT TO MONITOR PT.
[2017-09-14 08:00] VITALS: BP 99/49
[2017-09-14] MEDS: FERROUS SULFATE 325 MG TABEC PO SCH ×3 (08:42→16:19)
[2017-09-14] MEDS: PIPER/TAZO 2.25GM/D5W PREMIX 50 ML IV SCH ×2 (08:42→21:00)
--- NOTE | 2017-09-14 08:42 | NUR ---
ADMINISTERED MORNING MEDICATIONS SCHEDULED. PATIENT TOLERATED WELL. PATIENT NPO PRIOR TO PORTACATH PROCEDURE. RESIDENT ALERT AND ABLE TO MAKE NEEDS KNOWN. NO ACUTE DISTRESS. NO C/O PAIN. CALL LIGHT WITHIN REACH. WILL CONT TO MONITOR.
[2017-09-14] MEDS: DOCUSATE 100 MG/10 ML UDC GT SCH (08:43)
--- NOTE | 2017-09-14 10:30 | NUR ---
PATIENT RESTING IN BED COMFORTABLY. PATIENT ON THE PHONE TALKING. NO ACUTE DISTRESS NOTED. NO C/O PAIN AT THIS TIME. WAITING FOR PORTACATH PROCEDURE.CALL LIGHT WITHIN REACH. WILL CONT TO MONITOR PT.
--- NOTE | 2017-09-14 12:43 | NUR ---
ADMINISTERED SCHEDULED MEDICATIONS ORDERED. WITH SIP OF WATER. PATIENT TOLERATED WELL. PATIENT CONT NPO FOR PROCEDURE. PATIENT ALERT AND ABLE TO MAKE NEEDS KNOWN. NO ACUTE DISTRESS. CALL LIGHT WITHIN REACH. WILL CONT TO MONITOR PT.
[2017-09-14] MEDS: NACL 0.9% 1,000 ML IV SCH (13:00)
--- NOTE | 2017-09-14 14:30 | NUR ---
PATIENT RESTING IN BED. IV TO RFA WITH NS @40CC/HR. PATIENT TOLERATED WELL. NO ACUTE DISTRESS. RESP EVEN AND UNLABORED. DENIES PAIN. CALL LIGHT WITHIN REACH. WILL CONT TO MONITOR PT.
--- NOTE | 2017-09-14 15:27 | NUR ---
CM NOTE CONCURRENT REVIEW FAXED TO [facility] / FAX# [phone], ATTN: TRACIE #[phone]
[2017-09-14 16:00] VITALS: BP 107/56
--- NOTE | 2017-09-14 17:00 | NUR ---
SPOKE WITH PATIENT AND DAUGHTER JAGJIT REGARDING PROCEDURE PENDING AND IMPORTANCE OF PROCEDURE. NOTIFIED THEM PROCEDURE WOULD BE DONE THIS EVENING. PATIENT VERBALIZED UNDERSTANDING AND AGREEMENT.
--- NOTE | 2017-09-14 19:20 | NUR ---
ENDORSED PLAN OF CARE AT BEDSIDE TO MINIBUS DRIVER NURSE FOR CONTINUITY OF CARE.
--- NOTE | 2017-09-14 19:21 | NUR ---
RECEIVED PT FROM DAY SHIFT NURSE KRYS Carl RN. PT RESTING IN BED AWAITING FOR OR PROCEDURE. AOX4. ON 2L NC. IV RIGHT FA 22G, 40ML/HR NS, RIGHT IJ NILA CATH 2 LUMENS FOR DIALYSIS. PT HAS BEEN NPO FOR PROCEDURE. NO S/S OF RESPIRATORY DISTRESS OR DISCOMFORT NOTED AT THIS TIME. CALL LIGHT WITHIN REACH. WILL CONTINUE TO MONITOR.
--- NOTE | 2017-09-14 19:55 | NUR ---
PT WAS TAKEN TO OR IN STABLE CONDITION.
[2017-09-14] MEDS ORDERED: MIDAZOLAM 2 MG/2 ML VIAL ONE (20:30)
[2017-09-14] MEDS ORDERED: fentaNYL 0.05 MG/ML VIAL ONE (20:30)
[2017-09-14] MEDS ORDERED: BUPIVACAINE-MPF 0.25% 30 ML VIAL INJ ONE (20:37)
[2017-09-14] MEDS ORDERED: LIDOCAINE MPF 1% - **ER/OR** 0 ML ONE (20:38)
[2017-09-14] MEDS ORDERED: LIDOCAINE/EPI 1% 1:100000 20 ML VIAL INJ ONE (20:40)
[2017-09-14] MEDS: INSULIN LANTUS 100 UNITS/ML 10 ML VIAL SUBQ SCH (21:00)
[2017-09-14] MEDS ORDERED: PROPOFOL 200 MG/20 ML VIAL IV ONE (22:05)
[2017-09-14] MEDS ORDERED: MORPHINE SULFATE 4 MG/ML SYR ONE (22:06)
[2017-09-14] MEDS ORDERED: MORPHINE SULFATE 4 MG/ML SYR IVP PRN ×3 (22:10)
--- NOTE | 2017-09-14 22:50 | NUR ---
PT RETURNED TO THE UNIT VIA GURNEY FROM OR PROCEDURE. PT RESTING IN BED. ZOSYN WAS GIVEN BEFORE PROCEDURE. FANTYL, VERSED AND MORPHINE WAS GIVEN IN OR FOR PROCEDURE MODERATE SEDATION. CXR DONE. IJ QUNTON CATH BEEN D/C. RIGHT SUBCLAVIAN WAS INSERTED FOR DIALYSIS BY DR. HERNÁNDEZ.
--- NOTE | 2017-09-14 22:51 | NUR ---
HEPARIN INJECTION WAS NOT GIVEN. PT RETURNING FROM SURGERY. SEQUENTIAL PROPHYLAXIS BILATERAL LOWER EXTREMITIES IN PLACE.
[2017-09-14] MEDS ORDERED: MIDAZOLAM 2 MG/2 ML VIAL IV SCH (23:00)
[2017-09-15] VITALS: BP 122/73
--- NOTE | 2017-09-15 | NUR ---
VITAL SIGNS TAKEN. PT TOLERATED WELL. BP 122/73, HR 107, 98.2 TEMP, 94 O2SAT, 20 RR. NO S/S OF RESPIRATORY DISTRESS OR DISCOMFORT NOTED AT THIS TIME. PT RESTING IN BED. CALL LIGHT WITHIN REACH. BED IN LOWEST POSITION. WILL CONTINUE TO MONITOR.
--- NOTE | 2017-09-15 01:13 | NUR ---
PT ASKING FOR JELLO. PT NO LONGER ON NPO OF 09/14/2017 @ 2146. RENAL DIET TO START FOR BREAKFAST. JELLO WAS GIVEN.
--- NOTE | 2017-09-15 02:44 | NUR ---
PT SLEEPING AT THIS TIME. NO S/S OF RESPIRATORY DISTRESS OR DISCOMFORT AT THIS TIME. CALL LIGHT WITHIN REACH. BED IN LOWEST POSITION. WILL CONTINUE TO MONITOR.
[2017-09-15 07:08] LABS: CARBON DIOXIDE 27.7 mmol/L (21-32); POTASSIUM 3.7 mmol/L (3.5-5.1)
--- NOTE | 2017-09-15 07:18 | NUR ---
ENDORSED PT TO NURSE TROY. PT IN STABLE CONDITION. NO S/S OF RESPIRATORY DISTRESS OR DISCOMFORT NOTED AT THIS TIME.
--- NOTE | 2017-09-15 07:18 | NUR ---
ENDORSED PT TO NURSE TROY. PT IN STABLE CONDITION. NO S/S OF RESPIRATORY DISTRESS OR DISCOMFORT NOTED AT THIS TIME.
--- NOTE | 2017-09-15 07:19 | NUR ---
RECEIVED REPORT FROM [employer] NURSE AT BEDSIDE FOR CONTINUITY OF CARE.
[2017-09-15] MEDS: BLOOD GLUCOSE MONITORING 1 DEV DEV FS SCH ×3 (07:30→16:30)
[2017-09-15 07:55] LABS: CREATININE 4.9 mg/dL (0.6-1.3)
[2017-09-15 08:00] VITALS: BP 157/70
--- NOTE | 2017-09-15 08:00 | NUR ---
PT ALERT AND ABLE TO VERBALIZE NEEDS. NO ACUTE DISTRESS.PATIENT WITH IV TO RFA BUT DOES NOT FLUSH. TO CHANGE SITE BEFORE ATB DOSE IS DUE . SKIN INTACT. NO C/O PAIN OR DISCOMFORT. PATIENT USES TOILET PRN. DISCUSSED POC WITH PATIENT . PATIENT VERBALIZED UNDERSTANDING. PATIENT CALL LIGHT WITHIN REACH. WILL CONT TO MONITOR PT.
[2017-09-15] MEDS: DOCUSATE 100 MG/10 ML UDC GT SCH (09:00)
[2017-09-15] MEDS: FERROUS SULFATE 325 MG TABEC PO SCH ×2 (09:29→12:00)
[2017-09-15] MEDS: EPOETIN ALFA 10,000 UNITS/ML VIAL SUBQ SCH (09:29)
[2017-09-15 09:41] LABS: HEMOGLOBIN 10.6 g/dL (12.0-16.0); MEAN CORPUSCULAR HEMOGLOBIN 30 pg (27-31); MEAN CORPUSCULAR HGB CONC 33 g/dL (33-37); MEAN CORPUSCULAR VOLUME 90 fL (80-94); NEUTROPHILS % (AUTO) 85.3 % (42.2-75.2); PLATELET COUNT (AUTO) 226 K/uL (140-450); RED BLOOD CELL COUNT(AUTO) 3.54 MIL/uL (4.20-5.40); RED CELL DISTRIBUTION WIDTH 13.5 % (11.6-13.7); WHITE BLOOD COUNT (AUTO) 16.7 K/uL (4.8-10.8)
[2017-09-15 09:42] LABS: BASOPHILS # (AUTO) 0.1 K/uL (0.00-0.22); BASOPHILS % (AUTO) 0.4 % (0.0-2.0); EOSINOPHILS # (AUTO) 0.2 K/uL (0-0.4); EOSINOPHILS % (AUTO) 1.4 % (0.0-4.0); LYMPHOCYTES # (AUTO) 1.3 K/uL (2.5-16.5); LYMPHOCYTES % (AUTO) 7.9 % (20.5-51.1); MONOCYTES # (AUTO) 0.8 K/uL (0.8-1.0); NEUTROPHILS # (AUTO) 14.2 K/uL (1.8-7.7)
[2017-09-15] MEDS: PIPER/TAZO 2.25GM/D5W PREMIX 50 ML IV SCH (09:56)
--- NOTE | 2017-09-15 09:56 | NUR ---
PATIENT ALERT AND ABLE TO VERBALIZE NEEDS . ADMINISTERED SCHEDULED MEDICATIONS ORDERED. IV SITE TO LEFT WRIST 22 G . PATEINT TOLERATED. WELL . ZOSYN ADMINISTERED. CALL LIGHT WITHIN REACH. WILL CONT TO MONITOR PT.
--- NOTE | 2017-09-15 11:38 | NUR ---
SPOKE WITH DAVE FROM [facility]. SHE SAID SHE STILL NEEDED THE HEP PANEL AND MOST RECENT FLOW SHEET AND OPERATIVE REPORT FOR THE TUNNELED CATHETER. FAXED ALL TO HER AT [phone]. SHE SAID THE CHAIR TIME WAS CHANGED TO TTHSAT AT 9A.M. BE THERE 30MINUTES PRIOR TO FIRST DIALYSIS.
--- NOTE | 2017-09-15 12:00 | NUR ---
DR AU IN TO SEE PATIENT. WITH NEW ORDER TO DC HOME ONCE DR UPTON GIVE CLEARANCE TO DC HOME. PATIENT VERBALIZED DR AU MADE HER AWARE OF DISCHARGE ORDER. AWAITING DR UPTON FOR F/U.
--- NOTE | 2017-09-15 12:05 | NUR ---
WENT TO THE PATIENT'S ROOM TO ASK ABOUT TRANSPORT TO DIALYSIS CENTER. DR. AU HERE SPEAKING WITH THE PATIENT IN [place]. HE ASKED HER ABOUT TRANSPORT AND SHE SAID SHE WOULD CALL HER FAMILY ABOUT TRANSPORT. I INFORMED AND PATIENT SHE IS SCHEDULED FOR [facility] AT 9A.M.
[2017-09-15] MEDS: INSULIN LISPRO SLIDING SCALE 100 UNITS/ML VIAL SUBQ PRN (13:04)
[2017-09-15] MEDS: NACL 0.9% 1,000 ML IV SCH (13:05)
--- NOTE | 2017-09-15 15:29 | NUR ---
SPOKE TO DR MCWILLIAMS REGARDING PATIENT REFUSING DIALYSIS . DR MCWILLIAMS STATED OKAY FOR HER TO WAIT FOR DIALYSIS TOMORROW. DIALYSIS NURSE COOKIE MADE AWARE.
[2017-09-15 16:00] VITALS: BP 99/47
--- NOTE | 2017-09-15 17:00 | NUR ---
PATIENT VERBALIZED SHE HAD A FRIEND THAT WAS COMING TO PICK HER UP FROM THE HOSPITAL AND THAT SHE WAS NOT GOING TO WAIT FOR DR UPTON TO SEE HER TONIGHT. ASKED PATIENT IF SHE WANTED TO LEAVE HOSPITAL AGAINST MEDICAL ADVICE AND PT VERBALIZED YES. CALLED DR AU TO NOTIFY HIM OF PATIENT DECISION TO LEAVE AMA. DR AU STATED TO CALL DR UPTON . DR UPTON MADE AWARE AND HE STATED THAT HE HAD NEVER CONSULTED WITH PATIENT BEFORE . DR AU HAD PUT IN NEW ORDER FOR CONSULT THIS AFTERNOON WHILE IN UNIT. PATIENT SIGNED AMA FORM AND WAS GIVEN RX SCRIPT.
--- NOTE | 2017-09-15 17:25 | NUR ---
PATIENT BLOOD SUGAR WAS 65 APPLE JUICE GIVEN REINFORCED TO PATIENT THE IMPORTANCE OF STAYING FOR CLEARANCE FROM DR UPTON . PATIENT REFUSED TO STAY PATIENT ASSISTED TO FRONT LOBBY VIA WC . GAVE PATIENT ANOTHER APPLE JUICE. AND REITERATED THE IMPORTANCE OF CHECKING BLOOD GLUCOSE EXPLAINED RISKS AND BENEFITS. REMINDED PATIENT TO F/U WITH DIALYSIS CENTER TOMORROW SCHEDULED AT 0900. PATIENT GOT INTO PRIVATE VEHICLE WITHOUT DIFFICULTIES.
--- NOTE | 2017-09-15 17:57 | NUR ---
VERBAL REPORT GIVEN TO TRACIE FROM [facility]. PATIENT WAS TO WAIT FOR DR. UPTON, BUT SHE LEFT AMA. PER NURSE,KRYS, THE PATIENT KNOWS TO GO TO DIALYSIS AT 9AM TOMORROW. TO [facility]
== END 2017-09-15 17:25 | disposition left against medical advice (07) | DRG 673 ==
LOC: MED 17:07 → MTU 20:33
PROVIDERS: ADMIT Hospitalist; ATTEND Hospitalist
PROC: 05HM33Z Insertion of Infusion Device into Right Internal Jugular Vein, Percutaneous Approach (ICD-10-PCS; principal; 2017-09-10)
PROC: B543ZZA Ultrasonography of Right Jugular Veins, Guidance (ICD-10-PCS; 2017-09-10)
PROC: 30233N1 Transfusion of Nonautologous Red Blood Cells into Peripheral Vein, Percutaneous Approach (ICD-10-PCS; 2017-09-10)
PROC: 5A1D70Z Performance of Urinary Filtration, Intermittent, Less than 6 Hours Per Day (ICD-10-PCS; 2017-09-10)
PROC: 5A1D70Z Performance of Urinary Filtration, Intermittent, Less than 6 Hours Per Day (ICD-10-PCS; 2017-09-11)
PROC: 5A1D70Z Performance of Urinary Filtration, Intermittent, Less than 6 Hours Per Day (ICD-10-PCS; 2017-09-13)
PROC: 0JH60XZ Insertion of Tunneled Vascular Access Device into Chest Subcutaneous Tissue and Fascia, Open Approach (ICD-10-PCS; 2017-09-14)
PROC: 05PYX3Z Removal of Infusion Device from Upper Vein, External Approach (ICD-10-PCS; 2017-09-14)
PROC: 05HM33Z Insertion of Infusion Device into Right Internal Jugular Vein, Percutaneous Approach (ICD-10-PCS; 2017-09-14)
PROC: B5131ZA Fluoroscopy of Right Jugular Veins using Low Osmolar Contrast, Guidance (ICD-10-PCS; 2017-09-14)
DX: I12.0 Hypertensive chronic kidney disease with stage 5 chronic kidney disease or end stage renal disease (principal); N18.6 End stage renal disease; N17.9 Acute kidney failure, unspecified; E46 Unspecified protein-calorie malnutrition; E11.22 Type 2 diabetes mellitus with diabetic chronic kidney disease; J44.0 Chronic obstructive pulmonary disease with (acute) lower respiratory infection; J44.1 Chronic obstructive pulmonary disease with (acute) exacerbation; N25.81 Secondary hyperparathyroidism of renal origin; J20.9 Acute bronchitis, unspecified; E78.00 Pure hypercholesterolemia, unspecified; D63.8 Anemia in other chronic diseases classified elsewhere; E83.39 Other disorders of phosphorus metabolism; E11.65 Type 2 diabetes mellitus with hyperglycemia; E66.9 Obesity, unspecified; E87.70 Fluid overload, unspecified; E86.0 Dehydration; Z79.4 Long term (current) use of insulin; Z91.15 Patient's noncompliance with renal dialysis; Z68.28 Body mass index [BMI] 28.0-28.9, adult; Z99.2 Dependence on renal dialysis
CPT/HCPCS: 36415; 71045; 77003; 80048; 80053; 81001; 82272; 82306; 82728; 82948; 83036; 83540; 83735; 84100; 84484; 85025; 85610; 86704; 86706; 86708; 86709; 86803; 86886; 86900; 86901; 86920; 87040; 87081; 87340; 90935; 93005; 94640; 96374; 99285; C1750; C1758; J0360; J0885; J1100; J1644; J1815; J2001; J2060; J2250; J2270; J2543; J2704; J2920; J3010; J3490; J7030; J7613; J7620; J7644; P9016; Q0092; Q0163

== ENCOUNTER 2018-07-24 09:46 | Emergency (ER) | payer OTHER ==
[~2018-07-24] VITALS: Ht 160 cm; Wt 72.6 kg
[~2018-07-24 09:46] MED LIST: ALLO100T21 PO; AMLO5TAB4 PO; CALC0.5C PO; CALC667C3 PO; FERR-15 PO; GABA-638 PO; HYDR-3293; INSU-1165; INSU100S22; METO-747 PO; PANT40EC28 PO; REN800 PO
[2018-07-24 09:48] VITALS: BP 202/99
[2018-07-24] MEDS ORDERED: KETOROLAC 30 MG/ML VIAL IVP ONE (09:55)
[2018-07-24] MEDS ORDERED: ONDANSETRON 4 MG/2 ML VIAL IVP ONE (09:55)
[2018-07-24] MEDS ORDERED: MORPHINE SULFATE 4 MG/ML SYR IVP ONE (09:55)
[2018-07-24 10:47] LABS: HEMOGLOBIN 11.5 g/dL (12.0-16.0); MEAN CORPUSCULAR HEMOGLOBIN 30 pg (27-31); MEAN CORPUSCULAR HGB CONC 33 g/dL (33-37); MEAN CORPUSCULAR VOLUME 92.3 fL (80-94); PLATELET COUNT (AUTO) 219 K/uL (140-450); RED BLOOD CELL COUNT(AUTO) 3.79 MIL/uL (4.20-5.40); RED CELL DISTRIBUTION WIDTH 17.3 % (11.6-13.7); WHITE BLOOD COUNT (AUTO) 6.2 K/uL (4.8-10.8)
[2018-07-24 10:52] LABS: ANION GAP 6.2 (8-16); CARBON DIOXIDE 37.4 mmol/L (21-32); POTASSIUM 4.6 mmol/L (3.5-5.1)
[2018-07-24 10:58] LABS: ALBUMIN 3.5 g/dL (3.4-5.0); TOTAL BILIRUBIN 0.8 mg/dL (0.0-1.0)
[2018-07-24 11:04] LABS: EOSINOPHILS % (MANUAL) 2 % (0-4); LYMPHOCYTES % (MANUAL) 13 % (20-46); MONOCYTES % (MANUAL) 4 % (5-12)
[2018-07-24 13:22] VITALS: BP 181/89
== END 2018-07-24 13:22 | disposition home or self-care (01) ==
LOC: MED 09:46
DX: S80.02XA Contusion of left knee, initial encounter (principal); S80.01XA Contusion of right knee, initial encounter; E87.8 Other disorders of electrolyte and fluid balance, not elsewhere classified; M79.652 Pain in left thigh; M79.651 Pain in right thigh; E11.22 Type 2 diabetes mellitus with diabetic chronic kidney disease; I12.0 Hypertensive chronic kidney disease with stage 5 chronic kidney disease or end stage renal disease; N18.6 End stage renal disease; Z99.2 Dependence on renal dialysis; Z79.4 Long term (current) use of insulin; Z79.899 Other long term (current) drug therapy; W10.9XXA Fall (on) (from) unspecified stairs and steps, initial encounter; Y93.89 Activity, other specified; Y92.89 Other specified places as the place of occurrence of the external cause; Y99.8 Other external cause status
CPT/HCPCS: 36415; 71045; 73521; 73552; 73562; 80053; 82948; 84484; 85025; 93005; 96374; 96375; 99284; J1885; J2270; J2405

== ENCOUNTER 2018-08-27 09:42 | Inpatient (IN) | payer OTHER ==
[~2018-08-27] VITALS: Ht 152.4 cm; Wt 65.3 kg
[~2018-08-27 09:42] MED LIST changes: -AMLO5TAB4 PO; +AMLO5TAB6 PO
[2018-08-27 09:48] VITALS: BP 114/78
--- NOTE | 2018-08-27 10:09 | NUR ---
BROUGHT IN FROM [facility] PT COMPLETED DIALYSIS TODAY AND FOUND TO BE INCREASINGLY LETHARGIC BLOOD SUGAR IN FIELD 314 NILA CATHETOR RIGHT UPPER CHEST / OLD A/V SHUNT LUE HX--ESRD, HTN, DM RX---HYDRALAZINE 10MG QD, CLONIDINE 0.2MG, LISPRO 4UNITS, ZOFRAN 4MG, ATIVAN 1MG, COLACE 100MG, FERROUS SULFATE 325MG
--- NOTE | 2018-08-27 11:55 | NUR ---
PT REFUSES ABG JIAN CALDERON NOTIFIED
--- NOTE | 2018-08-27 12:28 | NUR ---
PATIENT REFUESING IV AT THIS TIME.
[2018-08-27 14:31] LABS: BASOPHILS % (AUTO) 0.8 % (0.0-2.0); EOSINOPHILS # (AUTO) 0.1 K/uL (0-0.4); EOSINOPHILS % (AUTO) 1.1 % (0.0-4.0); HEMATOCRIT 36.5 % (36-48); LYMPHOCYTES # (AUTO) 1.3 K/uL (2.5-16.5); LYMPHOCYTES % (AUTO) 20.7 % (20.5-51.1); MEAN CORPUSCULAR HEMOGLOBIN 29 pg (27-31); MEAN CORPUSCULAR HGB CONC 33 g/dL (33-37); MEAN CORPUSCULAR VOLUME 88.5 fL (80-94); MONOCYTES # (AUTO) 0.4 K/uL (0.8-1.0); MONOCYTES % (AUTO) 6.3 % (1.7-9.3); NEUTROPHILS # (AUTO) 4.5 K/uL (1.8-7.7); NEUTROPHILS % (AUTO) 71.1 % (42.2-75.2); PLATELET COUNT (AUTO) 174 K/uL (140-450); RED BLOOD CELL COUNT(AUTO) 4.13 MIL/uL (4.20-5.40); RED CELL DISTRIBUTION WIDTH 15.6 % (11.6-13.7); WHITE BLOOD COUNT (AUTO) 6.3 K/uL (4.8-10.8)
--- NOTE | 2018-08-27 15:30 | NUR ---
trop 0.071 glucose 432 Cr.3.69
[2018-08-27 15:32] LABS: ANION GAP 10.2 (8-16); CARBON DIOXIDE 34.1 mmol/L (21-32); POTASSIUM 3.3 mmol/L (3.5-5.1)
[2018-08-27 15:33] LABS: ALBUMIN 3.3 g/dL (3.4-5.0); CREATININE 3.7 mg/dL (0.6-1.3); TOTAL BILIRUBIN 0.4 mg/dL (0.0-1.0)
[2018-08-27 15:55] LABS: PROTHROMBIN TIME 9.1 secs (10.8-13.4)
--- NOTE | 2018-08-27 16:16 | NUR ---
CALLED [facility] AT THIS TIME TO BEGIN ADMISSION PROCESS. WAITING FOR CALL BACK FROM DR FUNK AT THIS TIME
[2018-08-27] MEDS ORDERED: INSULIN REGULAR, HUMAN 100 UNIT/ML VIAL IVP ONE (16:30)
[2018-08-27] MEDS ORDERED: ONDANSETRON 4 MG/2 ML VIAL IVP PRN (16:40)
[2018-08-27] MEDS ORDERED: ACETAMINOPHEN 325 MG TAB PO PRN (16:40)
--- NOTE | 2018-08-27 17:29 | NUR ---
RECEIVED BEDSIDE REPORT FROM ER NURSE. PATIENT AAOX4. PATIENT ON ROOM AIR, NO DISTRESS NOTED. SKIN INTACT. NO IV. PATIENT REFUSED. L AV SHUNT FISTULA BRUIT AND SWOOSH PRESENT. DIALYSIS ACCESS ON R UPPER CHEST. FALL RISK PROTOCOL IN PLACE. PATIENT ON MED SURGE AND STANDARD PRECAUTIONS. PATIENT WITH DIAPER FROM ER, ABLE TO AMBULATE WITH ASSIST AND CONTINENT. BED IN LOW POSITION, CALL LIGHT WITHIN REACH. WILL CONTINUE TO MONITOR.
--- NOTE | 2018-08-27 17:30 | NUR ---
HUMULIN R IVP NOT GIVEN SINCE PATIENT REFUSED IV. ALSO PATIENT NOT ON FLOOR AT THIS TIME FOR SCHEDULE OF HUMULIN R 5 UNITS ONCE AT 1630.
[2018-08-27 17:39] LABS: APPEARANCE,URINE CLEAR (CLEAR); BILIRUBIN,URINE NEGATIVE (NEGATIVE); BLOOD, URINE NEGATIVE (NEGATIVE); COLOR,URINE YELLOW (YELLOW); LEUKOCYTE ESTERASE ,URINE NEGATIVE (NEGATIVE); NITRITE, URINE NEGATIVE (NEGATIVE); PH,URINE 7.5 (5.0-9.0); UGLUCOSE 3+ (NEGATIVE)
--- NOTE | 2018-08-27 17:39 | NUR ---
PATIENT ADMITTED TO CARE OF DR FUNK ON MED SURG FLOOR. TAKEN IN [facility] TO ROOM 117. PATIENT STABLE AND ALERT DURING TRANSFER. REPROT GIVEN TO RN.
[2018-08-27 17:49] LABS: RBC,URINE 0-5 (RARE) /HPF (0-5)
--- NOTE | 2018-08-27 19:24 | NUR ---
GAVE BEDSIDE REPORT TO CLINICAL LABORATORY SCIENTIST NURSE. PATIENT ENDORSED IN STABLE CONDITION.
--- NOTE | 2018-08-27 19:25 | NUR ---
RECEIVED FROM AM RN IN BED SITTING UP . ABLE TO VERBALIZE SIMPLE NEEDS IN [place]. HD PT. PER AM RN SCHEDULED FOR HD TOMORROW ORDERED. NO IVF SITE RT PT. REFUSED. ROM X 4. CLEAR SPEECH. CALL LIGHT WITH IN REACH AND PER AM RN ABLE TO USE IT. GOOD AFFECT. SMILING.
[2018-08-28 00:54] VITALS: BP 175/82
[2018-08-28] MEDS: HYDROcodone/APAP 5/325 MG 1 TAB TAB PO PRN (00:56)
--- NOTE | 2018-08-28 00:57 | NUR ---
ASSISTED TO RESTROOM LOCATED INSIDE ROOM. ABLE TO WALK WITH ASSIST. PUT BACK IN BED AND REQUESTED FOR PAIN RELIEVER. "I HURT ALL OVER" WILL MEDICATE REQUESTED.
--- NOTE | 2018-08-28 04:20 | NUR ---
SLEEPING WELL. NEEDS ANTICIPATED AND MET.
--- NOTE | 2018-08-28 07:18 | NUR ---
REPORT RECEIVED FROM SENIOR AUDIT MANAGER NURSE, PT AAOX4, RESP EVEN UNLABORED, SKIN WARM DRY COLOR WNL, POC REVIEWD, ALL SAFETY MEASURES IN PLACE, WILL CONTINUE TO MONITOR.
[2018-08-28 07:37] LABS: ANION GAP 9.1 (8-16); CARBON DIOXIDE 33.3 mmol/L (21-32); POTASSIUM 3.4 mmol/L (3.5-5.1)
[2018-08-28 07:40] LABS: TOTAL BILIRUBIN 0.3 mg/dL (0.0-1.0)
[2018-08-28 07:41] LABS: ALBUMIN 2.9 g/dL (3.4-5.0)
[2018-08-28 08:00] VITALS: BP 167/63
--- NOTE | 2018-08-28 08:15 | NUR ---
PATIENT HAS BEEN SCREENED AND CATEGORIZED MODERATE NUTRITION RISK. PATIENT WILL BE SEEN WITHIN 3-5 DAYS OF ADMISSION. 08/30/[address]
[2018-08-28 08:23] LABS: BASOPHILS % (AUTO) 0.8 % (0.0-2.0); EOSINOPHILS # (AUTO) 0.2 K/uL (0-0.4); EOSINOPHILS % (AUTO) 3.1 % (0.0-4.0); HEMATOCRIT 34.4 % (36-48); HEMOGLOBIN 11.2 g/dL (12.0-16.0); LYMPHOCYTES # (AUTO) 1.7 K/uL (2.5-16.5); LYMPHOCYTES % (AUTO) 33.1 % (20.5-51.1); MEAN CORPUSCULAR HEMOGLOBIN 29 pg (27-31); MEAN CORPUSCULAR HGB CONC 33 g/dL (33-37); MEAN CORPUSCULAR VOLUME 89.8 fL (80-94); MONOCYTES # (AUTO) 0.4 K/uL (0.8-1.0); MONOCYTES % (AUTO) 7.7 % (1.7-9.3); NEUTROPHILS # (AUTO) 2.8 K/uL (1.8-7.7); NEUTROPHILS % (AUTO) 55.3 % (42.2-75.2); PLATELET COUNT (AUTO) 165 K/uL (140-450); RED BLOOD CELL COUNT(AUTO) 3.83 MIL/uL (4.20-5.40); RED CELL DISTRIBUTION WIDTH 15.7 % (11.6-13.7)
--- NOTE | 2018-08-28 09:40 | NUR ---
DR FUNK AT BEDSIDE.
[2018-08-28] MEDS ORDERED: DEXTROSE 50% 50 ML SYR IVP PRN (10:00)
--- NOTE | 2018-08-28 10:05 | NUR ---
[facility] CALLED TO NOTIFY OF DIALYSIS ORDER FOR TODAY.
--- NOTE | 2018-08-28 10:47 | NUR ---
PT REQUESTS LENTILS FOR LUNCH, REQUESTS NOT TO HAVE CHICKEN, NO FISH, NO RICE. LEFT MESSAGE WITH FNS.
[2018-08-28] MEDS: INSULIN LISPRO SLIDING SCALE 100 UNITS/ML VIAL SUBQ PRN ×3 (11:34→20:27)
[2018-08-28] MEDS: BLOOD GLUCOSE MONITORING 1 DEV DEV FS SCH ×3 (11:36→20:24)
--- NOTE | 2018-08-28 12:27 | NUR ---
DR COUCH AT BEDSIDE, DIALYSIS TO BE DONE TOMORROW INSTEAD OF TODAY.
--- NOTE | 2018-08-28 12:38 | NUR ---
PT C/O CRAMPING IN LEFT HAND, HAND MASSAGED PER PT'S REQUEST, PT STATES PAIN IS REWEAVED AFTER MASSAGE, WILL CONTINUE TO MONITOR.
[2018-08-28] MEDS ORDERED: METOPROLOL SUCCINATE 50 MG TABER PO SCH (13:00)
[2018-08-28] MEDS ORDERED: ALLOPURINOL 100 MG TAB PO SCH (13:00)
[2018-08-28] MEDS ORDERED: amLODIPine 5 MG TAB PO SCH (13:00)
--- NOTE | 2018-08-28 13:05 | NUR ---
PT SITTING UP IN CHAIR BY THE WINDOW, ICE CHIPS GIVEN REQUESTED, DENIES ANY OTHER NEEDS AT THIS TIME.
[2018-08-28] MEDS: CALCIUM ACETATE 667 MG TAB PO SCH ×2 (13:29→17:00)
--- NOTE | 2018-08-28 14:50 | NUR ---
PT CRYING BECAUSE SHE IS NOT GETTING DIALYSIS TODAY, IT WAS EXPLAINED TO PT THAT DR COUCH CHANGED DIALYSIS TO TOMORROW BASED ON HER LAB RESULTS, PT HAVING DIFFICULTY UNDERSTANDING, DAUGHTER JAGJIT CALLED EXPLAINED THE REASON FOR DIALYSIS CANCEL TODAY, JAGJIT VERBALIZED UNDERSTANDING, SHE WILL EXPLAIN TO PATIENT.
[2018-08-28] MEDS ORDERED: MENTHOL/METHYL 10%-15% 114 GM TUBE TP PRN (15:30)
[2018-08-28 16:00] VITALS: BP 144/66
--- NOTE | 2018-08-28 17:08 | NUR ---
PT CRYING SCREAMING STATES SHE IS VERY HUNGRY, STATES SHE DID NOT EAT LUNCH, SUGAR FREE PUDDING OFFERED, AND EXPLAINED TO PT THAT DINNER IS ARRIVING SOON.
--- NOTE | 2018-08-28 17:30 | NUR ---
PT STILL CRYING, DAUGHTER CALLED TO COMPLAIN THAT PATIENT IS NOT BEEING FED, PT DID EAT 100% OF LUNCH TRAY, PT GIVEN TUNA SANDWICH FOR NOW.
--- NOTE | 2018-08-28 19:20 | NUR ---
REPORT GIVEN TO HOTEL ATTENDANT NURSE, PT IN STABLE CONDITION.
--- NOTE | 2018-08-28 19:25 | NUR ---
RECEIVED FROM AM RN IN BED SLEEPING. WAKES UP EASILY WHEN TOUCHED. NO COMPLAINT AT THIS TIME. CALL LIGHT WITH IN REACH. PT. ABLE TO USE CALL LIGHT WELL. BED ALARM ON. RIGHT UPPER CHEST NILA CATHETER FOR HD INTACT AND NO BLEEDING.
[2018-08-28] MEDS: FERROUS SULFATE 325 MG TABEC PO SCH (20:29)
[2018-08-28] MEDS ORDERED: INSULIN LANTUS 100 UNITS/ML 10 ML VIAL SUBQ SCH (21:00)
--- NOTE | 2018-08-28 22:00 | NUR ---
DAUGHTER AT [facility]. NO COMPLAINTS DONE. PT. EATING FOOD PROVIDED BY DAUGHTER.
[2018-08-29 00:09] VITALS: BP 170/73
--- NOTE | 2018-08-29 00:10 | NUR ---
AWAKE AND ASSISTED AT THIS TIME TO RESTROOM. HAD 1 BM. PT. ON BED ALARM. ASSISTED SAFELY BACK IN BED . ABLE TO VERBALIZE NEEDS WELL. FOR HD SCHEDULED TOMORROW .
[2018-08-29] MEDS: HYDROcodone/APAP 5/325 MG 1 TAB TAB PO PRN (03:49)
--- NOTE | 2018-08-29 04:00 | NUR ---
SLEEPING. NO NOTED S/S OF HYPO/HYPERGLYCEMIA. ABLE TO USE CALL LIGHT FOR ANY HELP SHE NEEDS.
[2018-08-29] MEDS: BLOOD GLUCOSE MONITORING 1 DEV DEV FS SCH ×3 (06:39→16:50)
[2018-08-29] MEDS: INSULIN LISPRO SLIDING SCALE 100 UNITS/ML VIAL SUBQ PRN ×3 (06:40→17:59)
--- NOTE | 2018-08-29 06:59 | NUR ---
AWAKE AT THIS TIME . BLOOD SPECIMEN COLLECTED BY TROUBLE TRACER. PT. AM PERSONAL HYGIENE RENDERED BY CHARLETTE. BLOOD SUGAR CHECK PER FINGERSTICK 255. COVERED WITH HUMALOG INSULIN.
--- NOTE | 2018-08-29 07:10 | NUR ---
RECEIVED BEDSIDE REPORT FROM JIAN KIM. PT STABLE, AWAKE, AND ALERT. NO SIGNS OF DISTRESS NOTED. DENIES PAIN. AMBULATED TO THE BATHROOM WITH STEADY GAIT. PT REFUSED IV SITE. NO REDNESS, SWELLING, OR INFLAMMATION NOTED ON NILA CATHETER SITE. BED IN LOW POSITION. CALL LIGHT WITHIN REACH. SAFETY MEASURES IN PLACE. PLAN OF CARE REVIEWED.
[2018-08-29 07:48] LABS: ALBUMIN 2.8 g/dL (3.4-5.0); TOTAL BILIRUBIN 0.2 mg/dL (0.0-1.0)
[2018-08-29 07:53] LABS: CARBON DIOXIDE 30.7 mmol/L (21-32); POTASSIUM 3.7 mmol/L (3.5-5.1)
[2018-08-29 07:55] LABS: WHITE BLOOD COUNT (AUTO) 6.6 K/uL (4.8-10.8)
[2018-08-29 07:56] LABS: BASOPHILS % (AUTO) 0.8 % (0.0-2.0); EOSINOPHILS % (AUTO) 3.8 % (0.0-4.0); HEMATOCRIT 34.7 % (36-48); HEMOGLOBIN 11.4 g/dL (12.0-16.0); LYMPHOCYTES % (AUTO) 32.5 % (20.5-51.1); MEAN CORPUSCULAR HEMOGLOBIN 29 pg (27-31); MEAN CORPUSCULAR HGB CONC 33 g/dL (33-37); MEAN CORPUSCULAR VOLUME 88.8 fL (80-94); MONOCYTES % (AUTO) 6.1 % (1.7-9.3); NEUTROPHILS % (AUTO) 56.8 % (42.2-75.2); PLATELET COUNT (AUTO) 181 K/uL (140-450); RED CELL DISTRIBUTION WIDTH 15.5 % (11.6-13.7)
[2018-08-29 07:57] LABS: BASOPHILS # (AUTO) 0.1 K/uL (0.00-0.22); EOSINOPHILS # (AUTO) 0.2 K/uL (0-0.4); LYMPHOCYTES # (AUTO) 2.1 K/uL (2.5-16.5); MONOCYTES # (AUTO) 0.4 K/uL (0.8-1.0); NEUTROPHILS # (AUTO) 3.7 K/uL (1.8-7.7)
[2018-08-29 07:59] LABS: CREATININE 6.3 mg/dL (0.6-1.3)
[2018-08-29 08:00] VITALS: BP 132/63
[2018-08-29] MEDS ORDERED: ALLOPURINOL 100 MG TAB PO SCH ×2 (09:00)
[2018-08-29] MEDS ORDERED: NIFEdipine 30 MG TABER PO SCH (09:00)
[2018-08-29] MEDS: FERROUS SULFATE 325 MG TABEC PO SCH (09:00)
[2018-08-29] MEDS: CALCIUM ACETATE 667 MG TAB PO SCH ×3 (09:00→17:55)
[2018-08-29] MEDS ORDERED: amLODIPine 5 MG TAB PO SCH ×2 (09:00)
[2018-08-29] MEDS ORDERED: PANTOPRAZOLE 40 MG TABEC PO SCH (09:00)
[2018-08-29] MEDS ORDERED: METOPROLOL SUCCINATE 50 MG TABER PO SCH ×2 (09:00)
--- NOTE | 2018-08-29 10:14 | NUR ---
SPOKE WITH BOTTOM STAINER MONICO REGARDING PLAN OF CARE.
--- NOTE | 2018-08-29 10:27 | NUR ---
CM NOTE PER ELISEO OF [facility]# [phone] OPTION 3, THE PATIENT IS BEING FOLLOWED BY DR. SCOTT FAUSTIN. THE PATIENT IS SET UP FOR OUTPATIENT FOLLOW UP WITH DR. SCOTT FAUSTIN ON AUGUST 31, 2018 AT 9:20 AM AT THE CLINIC AT [address] [place] [address]. I GAVE THE PATIENT A COPY OF HER OUTPATIENT FOLLOW UP APPOINTMENT.
--- NOTE | 2018-08-29 11:24 | NUR ---
HEMODIALYSIS NURSE AT BEDSIDE.
--- NOTE | 2018-08-29 12:13 | NUR ---
ADMINISTERED 4 UNITS OF HUMALOG FOR BG 207. PT TOLERATED WELL.
--- NOTE | 2018-08-29 13:33 | NUR ---
CM NOTE CM DIRECTOR BUCHANAN RECEIVED A CALL FROM PATIENT'S DAUGHTER AYAAN BLACK # [phone] STATING THAT SHE CANNOT UNEMPLOYMENT BENEFITS CLAIMS TAKER PATIENT WHEN DISCHARGED BECAUSE SHE IS GOING TO WORK AND THAT SHE CALLED [facility] WHO SAID THAT THEY CAN PROVIDE TRANSPORTATION. I WAS REQUESTED BY DAVID BUCHANAN TO REQUEST TRANSPORTATION FROM [facility]. I CONFIRMED WITH PATIENT HER HOME ADDRESS. FAXED TRANSPORTATION REQUEST FORM TO [facility] TRANSPORTATION DEPT [phone]. PER NAHEED OF [facility] TRANSPORTATION DEPT PH# [phone], THEY HAVE RECEIVED THE REQUEST AND HAVE NOT YET SET UP TRANSPORTATION. PER NAHEED, ONCE TRANSPORTATION HAS BEEN ARRANGED THEIR COORDINATOR WILL GIVE THE HOSPITAL A CALL TO CONFIRM THE DETAILS ABOUT THE TRANSPORT. I GAVE NAHEED THE NUMBER TO THE NURSING STATION WHERE PATIENT IS IN CASE THEY CALL AT A LATER TIME.
--- NOTE | 2018-08-29 14:15 | NUR ---
DAVID NOTE RECEIVED A CALL FROM DEJA OF [facility] TRANSPORTATION DEPT PH# [phone] STATING THAT THE PATIENT'S TRANSPORT HAS BEEN ARRANGED WITH [facility] THEY CAN VINER OPERATOR THE PATIENT FROM THE HOSPITAL TO GO HOME IS AT 7PM TODAY. CHARGE NURSE CARMEN AND JERALD BRAUN RN AWARE. Addendum: 08/29/18 at 1503 by Dayanna Tom CM SPOKE WITH THE PATIENT'S DAUGHTER AYAAN BLACK PH# [phone] TO INFORM HER AND SHE SAID HER DAUGHTER WILL BE HOME TO RECEIVE THE PATIENT
--- NOTE | 2018-08-29 15:00 | NUR ---
PER HEMODIALYSIS NURSE, 2L OUTPUT FROM TODAY'S DIALYSIS.
[2018-08-29 16:00] VITALS: BP 157/43
--- NOTE | 2018-08-29 18:03 | NUR ---
ADMINISTERED SCHEDULED MEDICATIONS. PT TOLERATED WELL. NO OTHER NEEDS AT THIS TIME.
--- NOTE | 2018-08-29 19:05 | NUR ---
ENDORSED PT TO RN CAPRICE FOR CONTINUITY OF CARE. PT STABLE, AWAKE, AND ALERT.
--- NOTE | 2018-08-29 19:30 | NUR ---
RECEIVED PT FROM APARNA RN PT LITHUANIAN SPEAKER AAOX4 AMBULATORY AV SHUNT ON LEFT ARM AND NILA CATH FOR DIALYSIS ON LEFT UPPER CHEST PT ON STABLE CONDITION READY TOGO HOME ALL DISCHARGE PAPER ALREADY SIGNED WAITING FOR [facility] TO PICK PT UP INITIAL ASSESSMENT DONE.
--- NOTE | 2018-08-29 19:45 | NUR ---
[facility] IS HERE PT READY TO GO HOME ID WRIST IS REMOVED ALL DISCHARGED PROTOCOL DONE PT ON STABLE CONDITION CHARGE NURSE RHYS AWARE PT DC
[2018-08-29] MEDS ORDERED: INSULIN LANTUS 100 UNITS/ML 10 ML VIAL SUBQ SCH (21:00)
== END 2018-08-29 19:45 | disposition home or self-care (01) | DRG 70 ==
LOC: MED 09:42 → MTU 16:42
PROVIDERS: ADMIT Hospitalist; ATTEND Hospitalist
PROC: 5A1D70Z Performance of Urinary Filtration, Intermittent, Less than 6 Hours Per Day (ICD-10-PCS; principal; 2018-08-29)
DX: G93.41 Metabolic encephalopathy (principal); N18.6 End stage renal disease; I12.0 Hypertensive chronic kidney disease with stage 5 chronic kidney disease or end stage renal disease; E11.22 Type 2 diabetes mellitus with diabetic chronic kidney disease; K21.9 Gastro-esophageal reflux disease without esophagitis; J44.9 Chronic obstructive pulmonary disease, unspecified; D63.1 Anemia in chronic kidney disease; Z99.2 Dependence on renal dialysis; Z79.4 Long term (current) use of insulin; Z79.899 Other long term (current) drug therapy; Z83.3 Family history of diabetes mellitus
CPT/HCPCS: 36415; 71045; 80053; 81001; 82140; 82948; 83605; 83880; 84484; 85025; 85610; 85730; 87040; 87081; 87086; 87804; 90935; 93005; 97110; 97116; 97530; 99285; J1644; J1815; J7030; Q0092